=== PATIENT | female | born 1960 | race Caucasian/White ===

== ENCOUNTER 2024-08-18 19:49 | Emergency (ER) | payer BC, OTHER ==
[2024-08-18 20:56] LABS: BASOPHILS ABSOLUTE AUTO 0.03 K/uL (0.00-0.10); BASOPHILS PERCENT AUTO 0.3 % (0.1-1.3); EOSINOPHILS ABSOLUTE AUTO 0.16 K/uL (0.00-0.40); EOSINOPHILS PERCENT AUTO 1.6 % (0.0-5.4); HEMATOCRIT 46.7 % (34.3-46.0); HEMOGLOBIN 15.4 g/dL (11.2-15.5); IMMATURE GRAN ABSOLUTE AUTO 0.03 K/uL (0.00-0.23); IMMATURE GRAN PERCENT AUTO 0.3 % (0.0-0.7); LYMPHOCYTES ABSOLUTE AUTO 1.55 K/uL (0.8-3.3); LYMPHOCYTES PERCENT AUTO 15.1 % (11.4-47.7); MONOCYTES ABSOLUTE AUTO 0.65 K/uL (0.20-0.90); MONOCYTES PERCENT AUTO 6.3 % (3.3-12.6); NEUTROPHILS ABSOLUTE AUTO 7.82 K/uL (1.0-7.6); NEUTROPHILS PERCENT AUTO 76.4 % (40.0-78.1); PLATELET COUNT,PLT 296 K/uL (130-375); RED BLOOD CELL COUNT 5.13 M/uL (3.77-5.24); WHITE BLOOD CELL COUNT,WBC 10.2 K/uL (3.2-11.0)
[2024-08-18] MEDS: Acetaminophen 500 MG Tab PO ONE (21:07)
[2024-08-18 21:15] LABS: PROTHROMBIN TIME 9.9 sec (9.2-10.6)
[2024-08-18 21:19] LABS: ALANINE AMINOTRANSFERASE,ALT 37 U/L (12-78); ALBUMIN 3.8 g/dL (3.4-5.0); ALKALINE PHOSPHATASE 103 U/L (46-116); ASPARTATE AMNIOTRANSFERASE,AST 28 U/L (15-37); BILIRUBIN TOTAL 0.3 mg/dL (0.2-1.0); BLOOD UREA NITROGEN,BUN 16 mg/dL (7-18); CALCIUM 10.3 mg/dL (8.5-10.1); CARBON DIOXIDE,CO2 30 mmol/L (21-32); CHLORIDE,CL 105 mmol/L (100-108); CREATININE 0.8 mg/dL (0.6-1.0); EST CRCL DRUG DOSING (CG) 77.84 mL/min; ESTIMATED GFR 83 mL/min (>60); GLUCOSE RANDOM 124 mg/dL (74-106); POTASSIUM,K 3.2 mmol/L (3.6-5.2); PROTEIN TOTAL,TP 7.5 g/dL (6.4-8.2); SODIUM,NA 145 mmol/L (140-148); TROPONIN I HIGH SENSITIVITY 14.4 pg/mL (<=60.3)
[2024-08-18 21:20] LABS: ANION GAP 13.2 mmol/L (5.0-14.0)
[2024-08-18] MEDS: Iopamidol 755 Mg/ML 100 ML Bottle IV SCH (21:20)
[2024-08-18] MEDS: Sodium Chloride 0.9% 100 ML IV SCH (21:20)
[2024-08-18] MEDS: Sodium Chloride 0.9% 10 ML Syringe FLUSH ONE (21:20)
[2024-08-18] MEDS: Sodium Chloride 0.9% 1,000 ML IV SCH (21:33)
[2024-08-18] MEDS: Thiamine 500 MG in Sodium Chloride 0.9% 100 ML IV ONE (21:59)
== END 2024-08-18 23:14 | disposition home or self-care (01) ==
LOC: JP.ED 19:49
DX: G45.4 Transient global amnesia (principal); I10 Essential (primary) hypertension; E78.00 Pure hypercholesterolemia, unspecified; Z79.899 Other long term (current) drug therapy; Z88.8 Allergy status to other drugs, medicaments and biological substances
CPT/HCPCS: 36415; 70450; 70496; 70498; 80053; 84484; 85025; 85610; 93005; 96374; 99285; A9270; J3411; J7030; Q9967